=== PATIENT | male | born 1975 | race Caucasian/White ===

== ENCOUNTER → 2017-07-10 | Outpatient (CLI) | payer BC ==
[2017-07-10 16:05] LABS: BASO # 0.1 (0.0-0.2); BASO % 0.5 % (0.0-2.0); EOS # 0.4 (0.0-0.7); EOS % 3.9 % (0-4.0); GRAN # 5.5 (1.4-6.5); GRAN % 59.3 % (42.2-75.2); HEMATOCRIT 51.1 % (42.0-52.0); HEMOGLOBIN 17.2 g/dl (13.5-18.0); LYMPH # 2.4 (1.2-3.4); LYMPH % 25.8 % (20.0-51.0); MEAN CELL VOLUME 89 fl (80.0-100.0); MEAN CORPUSCULAR HEMOGLOBIN 30 pg (27.0-31.0); MEAN CORPUSCULAR HGB CONC 34 g/dl (33.0-37.0); MEAN PLATELET VOLUME 9.8 fl (7.4-10.4); MONO % 10.2 % (1.7-9.3); PLATELET COUNT 281 K/mm3 (130-400); RED BLOOD COUNT 5.77 M/mm3 (4.20-5.60); REDCELL DISTRIBUTION WIDTH-CV 12.5 % (11.5-14.5); WHITE BLOOD COUNT 9.3 K/mm3 (4.8-10.8)
[2017-07-10 16:16] LABS: ADJUSTED CALCIUM 9.6 mg/dL (8.4-10.2); ALANINE AMINOTRANSFERASE 52 U/L (21-72); ALBUMIN 4.9 gm/dL (3.5-5.0); ALKALINE PHOSPHATASE 86 U/L (50-136); ANION GAP 14 mmol/L (7-16); BILIRUBIN,TOTAL 0.8 mg/dL (0.0-1.0); BLOOD UREA NITROGEN 27 mg/dL (9-20); CALCIUM 10.3 mg/dL (8.4-10.2); CARBON DIOXIDE 28 mmol/L (22-30); CHLORIDE 95 mmol/L (98-107); GLUCOSE 121 mg/dL (74-106); POTASSIUM 3.9 mmol/L (3.4-5.0); SODIUM 137 mmol/L (137-145)
[2017-07-10 16:29] LABS: TROPONIN-I < 0.012 ng/mL (0.000-0.034)
== END ==
LOC: COL.LAB 15:35
PROVIDERS: Internal Medicine
DX: I10 Essential (primary) hypertension (principal); R53.81 Other malaise

== ENCOUNTER 2020-03-04 15:57 | Emergency (ER) | payer BC ==
[~2020-03-04] VITALS: Ht 182.9 cm; Wt 132.3 kg
[2020-03-04 15:59] VITALS: TEMP 97.8
[2020-03-04] MEDS ORDERED: GLUCOPHAGE1000 MG PO (16:04)
[2020-03-04] MEDS ORDERED: GLUCOTROL 5M5 MG/TAB PO (16:04)
[2020-03-04] MEDS ORDERED: TOPROL XL100 MG PO (16:05)
[2020-03-04] MEDS ORDERED: CANA300T PO (16:05)
[2020-03-04] MEDS ORDERED: LOTENSIN HCT 201 TA1 PO (16:05)
[2020-03-04 16:58] LABS: BASO % 0.5 % (0.0-2.0); EOS # 0.1 (0.0-0.7); GRAN # 4.7 (1.4-6.5); HEMATOCRIT 51.7 % (42.0-52.0); LYMPH # 2.4 (1.2-3.4); LYMPH % 27.6 % (20.0-51.0); MEAN CELL VOLUME 85 fl (80.0-100.0); MEAN CORPUSCULAR HEMOGLOBIN 30 pg (27.0-31.0); MEAN CORPUSCULAR HGB CONC 35 g/dl (33.0-37.0); MEAN PLATELET VOLUME 9.6 fl (7.4-10.4); MONO # 1.4 (0.1-0.6); MONO % 16.4 % (1.7-9.3); PLATELET COUNT 314 K/mm3 (130-400); RED BLOOD COUNT 6.07 M/mm3 (4.20-5.60); REDCELL DISTRIBUTION WIDTH-CV 12.1 % (11.5-14.5)
[2020-03-04 17:03] LABS: HEMOGLOBIN 18.1 g/dl (13.5-18.0)
[2020-03-04 17:06] LABS: ALANINE AMINOTRANSFERASE 50 U/L (4-49); ALBUMIN 5.1 gm/dL (3.5-5.0); ALKALINE PHOSPHATASE 96 U/L (50-136); AST,SGOT 30 U/L (15-37); BILIRUBIN,TOTAL 0.9 mg/dL (0.0-1.0); BLOOD UREA NITROGEN 27 mg/dL (9-20); CALCIUM 10.1 mg/dL (8.4-10.2); CARBON DIOXIDE 21 mmol/L (22-30); CREATININE, serum 1.41 (0.66-1.25); GLUCOSE 140 mg/dL (74-106); SODIUM 134 mmol/L (137-145); TOTAL PROTEIN 8.6 gm/dL (6.4-8.2)
[2020-03-04 17:10] LABS: CHLORIDE 95 mmol/L (98-107)
[2020-03-04 17:12] LABS: ANION GAP 18 mmol/L (7-16); C-REACTIVE PROTEIN < 0.5 mg/dL (0.0-0.9)
[2020-03-04 18:52] LABS: COLLECTION METHOD CLEAN CATCH
[2020-03-04 18:58] VITALS: BP 132/74; PULSE 80
[2020-03-04 19:10] LABS: MUCOUS Present /lpf; PH 5 (5-8); SQUAMOUS EPITHELIAL None Seen /hpf; URINE APPEARANCE Hazy; URINE BACTERIA None Seen /hpf; URINE BILIRUBIN Negative (NEGATIVE); URINE BLOOD Negative (NEGATIVE); URINE COLOR Yellow; URINE GLUCOSE 3+ (NEGATIVE); URINE KETONE 2+ (NEGATIVE); URINE LEUKOCYTE ESTERASE Negative (NEGATIVE); URINE NITRATE Negative (NEGATIVE); URINE PROTEIN(semi-quant) 1+ (NEGATIVE); URINE RBC 0-2 /hpf; URINE UROBILINOGEN Negative (NEGATIVE)
== END 2020-03-04 19:09 | disposition home or self-care (01) ==
LOC: COL.ER 15:57
PROVIDERS: Physician Assistant
DX: I95.1 Orthostatic hypotension (principal); E11.9 Type 2 diabetes mellitus without complications; I10 Essential (primary) hypertension; Z79.84 Long term (current) use of oral hypoglycemic drugs
CPT/HCPCS: J2405; J7030

== ENCOUNTER → 2022-02-09 | Outpatient (CLI) | payer BC ==
[~2022-02-09] MED LIST: CANA300T PO; GLUCOPHAGE1000 MG PO; GLUCOTROL 5M5 MG/TAB PO; LOTENSIN HCT 201 TA1 PO; TOPROL XL100 MG PO
== END ==
LOC: COL.RAD 06:58
DX: R10.11 Right upper quadrant pain (principal)

== ENCOUNTER 2024-01-05 19:22 | Inpatient (IN) | payer BC ==
[~2024-01-05] VITALS: Ht 182.9 cm; Wt 131.7 kg
[2024-01-05 19:45] LABS: BASO # 0.1 K/mm3 (0.0-0.2); BASO % 0.7 % (0.0-2.0); EOS # 0.1 K/mm3 (0.0-0.7); EOS % 0.6 % (0.0-4.0); GRAN # 6.8 K/mm3 (1.4-6.5); HEMATOCRIT 52.7 % (42.0-52.0); HEMOGLOBIN 18.3 g/dl (13.5-18.0); LYMPH # 2.4 K/mm3 (1.2-3.4); LYMPH % 22.6 % (20.0-51.0); MEAN CELL VOLUME 88 fl (80.0-100.0); MEAN CORPUSCULAR HEMOGLOBIN 30 pg (27-31); MEAN CORPUSCULAR HGB CONC 35 g/dl (33.0-37.0); MEAN PLATELET VOLUME 9.3 fl (7.4-10.4); MONO # 1.1 K/mm3 (0.1-0.6); MONO % 10.8 % (1.7-9.3); PLATELET COUNT 383 K/mm3 (130-400); RED BLOOD COUNT 6.01 M/mm3 (4.20-5.60); REDCELL DISTRIBUTION WIDTH-CV 12.8 % (11.5-14.5)
[2024-01-05] MEDS ORDERED: diphenhydrAMINE 50 MG/ML 1 ML VIAL IV ONE (20:00)
[2024-01-05] MEDS ORDERED: NS 1,000 ML IV ONE ×2 (20:00→21:45)
[2024-01-05 20:04] LABS: ALANINE AMINOTRANSFERASE 25 U/L (0-55); ALBUMIN 4.6 gm/dL (3.5-5.0); ALKALINE PHOSPHATASE 94 U/L (40-150); ANION GAP 23 mmol/L (7-16); AST,SGOT 13 U/L (5-34); BILIRUBIN,TOTAL 0.4 mg/dL (0.2-1.2); BLOOD UREA NITROGEN 20 mg/dL (8-26); CALCIUM 10.1 mg/dL (8.4-10.2); CHLORIDE 103 mmol/L (98-107); CREATININE, serum 1.59 mg/dL (0.72-1.25); GLUCOSE 203 mg/dL (70-99); LIPASE 32 U/L (8-78); POTASSIUM 3.8 mmol/L (3.5-4.5); SODIUM 133 mmol/L (136-145)
[2024-01-05 20:05] LABS: CARBON DIOXIDE 7 mmol/L (22-29)
[2024-01-05 20:11] LABS: TROPONIN-I < 0.010 ng/mL (0.00-0.033)
[2024-01-05 21:53] LABS: COLLECTION METHOD CLEAN CATCH
[2024-01-05 21:54] LABS: ACETAMINOPHEN < 7.0 ug/mL (10-30); ALCOHOL(ethanol),MEDICAL < 10 mg/dL (0-10); SALICYLATE < 5.0 mg/dL (15.0-30.0)
[2024-01-05 22:02] LABS: URINE APPEARANCE CLEAR (CLEAR/HAZY); URINE BLOOD NEGATIVE (NEGATIVE); URINE COLOR YELLOW (YELLOW); URINE GLUCOSE 3+ (NEGATIVE); URINE KETONE 4+ (NEGATIVE); URINE NITRATE NEGATIVE (NEGATIVE); URINE PROTEIN(semi-quant) 1+ (NEGATIVE); URINE UROBILINOGEN 0.2 E.U/dL (0.2-1.0)
[2024-01-05] MEDS ORDERED: Insulin Aspart (NovoLOG) SQ SCH (22:41)
[2024-01-05] MEDS ORDERED: Polyethylene Glycol 3350 17 GM PDS PO PRN (22:45)
[2024-01-05] MEDS ORDERED: LR 1,000 ML IV ONE (22:45)
[2024-01-05] MEDS ORDERED: Sodium Bicarbonate/Water,Steri 1,150 ML IV SCH (22:45)
[2024-01-05] MEDS ORDERED: Dextrose (Glucose) 15 GM (4 x 3.75 GM) Chewable TABLET PACK PO PRN (23:00)
[2024-01-05] MEDS ORDERED: Glucagon 1 MG VIAL IM PRN (23:00)
[2024-01-05] MEDS ORDERED: Dextrose 50% Water 25 GM/50 ML SYRINGE IV PRN (23:00)
--- NOTE | 2024-01-05 23:02 | NUR ---
Received report from ED nurse, Beckie.
[2024-01-05] MEDS ORDERED: JARDIANCE25 PO (23:10)
[2024-01-05] MEDS ORDERED: TREMFYA100 MG/1 M SQ (23:11)
[2024-01-05 23:32] LABS: MAGNESIUM 2.2 mg/dL (1.6-2.6); PHOSPHOROUS 2.7 mg/dL (2.3-4.7)
[2024-01-05 23:37] LABS: CALCIUM 9.1 mg/dL (8.4-10.2); CREATININE, serum 1.58 mg/dL (0.72-1.25); POTASSIUM 4.3 mmol/L (3.5-4.5)
[2024-01-05 23:45] LABS: CHOLESTEROL RISK RATIO 5.2
[2024-01-05 23:48] VITALS: BP 160/73; PULSE 93; TEMP 97.8
--- NOTE | 2024-01-05 23:48 | NUR ---
Patient arrives to ICU bed 7 via ED stretcher. Patient is alert and oriented; initial vitals within normal limits. Patient reports mild nausea but otherwise denies pain or discomfort. Patient ambulates to ICU bed independently with steady gait.
[2024-01-06] VITALS (124 sets, daily range): BP systolic 121–149; BP diastolic 67–95; PULSE 78–97; TEMP 97.8–98.8; O2SAT 78–100
[2024-01-06] MEDS ORDERED: Heparin 5,000 UNITS/ML 1 ML VIAL SQ SCH
--- NOTE | 2024-01-06 00:10 | NUR ---
Patient's belongings include a pair of black shorts, a pair of black shoes, a gold-colored wedding band, and his cell phone. Denies having dentures, hearing aids, or glasses. Denies using ambulatory devices.
--- NOTE | 2024-01-06 00:10 | NUR ---
Patient's wallet taken home with , Ewelina.
[2024-01-06] MEDS ORDERED: Acetaminophen 325 MG TAB PO PRN (00:15)
[2024-01-06] MEDS ORDERED: Ondansetron 4 MG/2 ML VIAL IV PRN (00:15)
[2024-01-06] MEDS ORDERED: Melatonin 3 MG TAB PO PRN (00:15)
[2024-01-06] MEDS ORDERED: Zolpidem 5 MG TAB PO ONE (00:45)
[2024-01-06] MEDS ORDERED: Insulin Human Regular/NS 100 ML IV SCH (01:00)
[2024-01-06] MEDS ORDERED: D5 1/2 NS & 20 mEq KCl 1,000 ML IV SCH (01:00)
[2024-01-06] MEDS ORDERED: Morphine 4 MG/ML VIAL IV PRN ×2 (03:00)
[2024-01-06 03:21] LABS: CALCIUM 8.9 mg/dL (8.4-10.2); CREATININE, serum 1.42 mg/dL (0.72-1.25)
--- NOTE | 2024-01-06 07:00 | NUR ---
REPORT RECEIVED FROM SEEMA GAR. PT RESTING IN BED, VSS ON ROOM AIR. INSULIN AND FLUIDS INFUSING ORDERED TO PERIPHERAL IV IN L HAND, SITE WNL. PT IS ALERT AND ORIENTED, DENIES NEEDS AT THIS TIME, CALL LIGHT IN REACH.
[2024-01-06 09:56] LABS: CREATININE, serum 1.22 mg/dL (0.72-1.25); POTASSIUM 3.6 mmol/L (3.5-4.5)
[2024-01-06] MEDS ORDERED: 1/2 NS 1,000 ML IV SCH (10:00)
[2024-01-06] MEDS ORDERED: Docusate Sodium 100 MG CAP PO SCH (11:00)
[2024-01-06] MEDS ORDERED: Insulin Aspart (NovoLOG) SQ SCH (12:00)
--- NOTE | 2024-01-06 14:09 | NUR ---
well service derrick worker. PA Student and Dr. Rand met with patient and his for interdisciplinary clinical rounding. Patient may move to the medical floor today. SW met with patient and patient's to discuss discharge planning. Patient lives in [place] with his , Ewelina, Lili# [phone]. PCP is Dr. Sampson, pharmacy is [facility]. no issues affording medications at this time. No DPOA-HC and does not want to complete one at this time. No DME at this time. Patient reports to be independent with ADLS and transports himself to and from appointments. Patient would like to return home at time of discharge. Discharge plan: Home
--- NOTE | 2024-01-06 14:14 | NUR ---
Patient requested social scientist contact his PCP office to notify them that he is in the ICU. SW contacted [facility] and notified them.
[2024-01-06 15:22] LABS: CALCIUM 8.8 mg/dL (8.4-10.2); CREATININE, serum 1.3 mg/dL (0.72-1.25); POTASSIUM 3.8 mmol/L (3.5-4.5)
[2024-01-06] MEDS ORDERED: Sodium Bicarbonate 650 MG TAB PO SCH (15:45)
--- NOTE | 2024-01-06 21:24 | NUR ---
PT IN BED, AWAKE AND CALM. 1/2 NS RUNNING IN LEFT HAND IV.
[2024-01-06 23:10] LABS: CALCIUM 8.7 mg/dL (8.4-10.2); CREATININE, serum 1.24 mg/dL (0.72-1.25); POTASSIUM 3.7 mmol/L (3.5-4.5)
[2024-01-07] VITALS (9 sets, daily range): BP systolic 136–155; BP diastolic 71–89; PULSE 78–86; TEMP 97.7–98.6; O2SAT 98
[2024-01-07] MEDS ORDERED: Menthol Cough/Sore Throat LOZENGE MM PRN (00:45)
[2024-01-07 06:11] LABS: CREATININE, serum 1.17 mg/dL (0.72-1.25); MAGNESIUM 1.8 mg/dL (1.6-2.6); POTASSIUM 3.6 mmol/L (3.5-4.5)
--- NOTE | 2024-01-07 10:55 | NUR ---
REPORT RECEIVED FROM SEEMA TAYLOR. PT RESTING IN BED, VSS ON ROOM AIR. FLUIDS INFUSING ORDERED TO PERIPHERAL IV IN L HAND. PT IS ALERT AND ORIENTED, DENIES NEEDS AT THIS TIME, CALL LIGHT IN REACH.
[2024-01-07] MEDS ORDERED: Insulin Lispro (HumaLOG) SQ SCH (12:00)
[2024-01-07] MEDS ORDERED: SODIUM BICARBO650 MG PO (12:06)
[2024-01-07] MEDS ORDERED: GLUCOTROL 5M5 MG/TAB PO (12:12)
[2024-01-07 18:25] LABS: POTASSIUM 3.6 mmol/L (3.5-4.5)
--- NOTE | 2024-01-07 18:27 | NUR ---
Patient transferred to unit from ICU around 1300. Gait steady without assistive devices. Denies pain. at bedside. Lung sounds clear, HR regular, stable on room air. Patient requested shower, took one independently. NS infusing per orders through left wrist IV. Call light within reach, all needs met at this time.
[2024-01-07 18:46] LABS: CREATININE, serum 1.33 mg/dL (0.72-1.25)
--- NOTE | 2024-01-07 19:53 | NUR ---
Discussed discharge instructions with patient and at bedside. Discussed follow-up appointment, new medications/changes to medications. Discussed glucose monitoring and goal range. Patient verbalized understanding. IV discontinued to left wrist with no complications. Telemetry off. Patient escorted out by staff and via ambulation. Patient states PCP is Dr. Sampson, PCP office faxed with follow-up appointment range.
== END 2024-01-07 19:50 | disposition home or self-care (01) | DRG 638 ==
LOC: COL.ER 19:22 → ICU 22:41 → MEDICAL 01-07 12:57
PROVIDERS: Internal Medicine; Nurse Practitioner Primary Care; Physician Assistant; ADMIT Internal Medicine
DX: E11.10 Type 2 diabetes mellitus with ketoacidosis without coma (principal); N17.9 Acute kidney failure, unspecified; Z20.822 Contact with and (suspected) exposure to COVID-19; E86.9 Volume depletion, unspecified; E86.0 Dehydration; B34.9 Viral infection, unspecified; K21.9 Gastro-esophageal reflux disease without esophagitis; E66.9 Obesity, unspecified; I12.9 Hypertensive chronic kidney disease with stage 1 through stage 4 chronic kidney disease, or unspecified chronic kidney disease; E11.22 Type 2 diabetes mellitus with diabetic chronic kidney disease; N18.9 Chronic kidney disease, unspecified; L40.0 Psoriasis vulgaris; Z79.899 Other long term (current) drug therapy; Z79.84 Long term (current) use of oral hypoglycemic drugs; Z68.39 Body mass index [BMI] 39.0-39.9, adult
CPT/HCPCS: J1644; J1815; J2270; J2405; J3411; J3480; J7030; J7120